=== PATIENT | female | born 1970 | race African-American/Black ===

== ENCOUNTER 2017-06-22 12:25 | Inpatient (IN) | payer OTHER ==
[2017-06-22] MEDS ORDERED: cloNIDine HCl 0.1 MG TAB ONE (12:56)
[2017-06-22 16:33] LABS: #Eosinphils 0.1 thou/uL (0.0-0.7); #Monocytes 0.4 thou/uL (0.11-0.59); #Neutrophils 4.8 thou/uL (1.40-6.50); %Basophils 0.4 % (0.0-1.0); %Eosinophils 0.9 % (0.0-10.0); %Lymphocytes 27.6 % (21.0-51.0); %Monocytes 5.7 % (0.0-10.0); Hematocrit 44.5 % (36.0-47.0); Mean Platelet Volume 7.1 fL (7.4-10.4); Red Blood Cell (RBC) Count 5.08 mill/uL (4.20-5.40); White Blood Cell (WBC) Count 7.3 thou/uL (4.8-10.8)
[2017-06-22 16:55] LABS: ALT (SGPT) 11 U/L (8-55); AST (SGOT) 16 U/L (5-34); Alkaline Phosphatase 122 U/L (40-150); Anion Gap 14 mmol/L (10-20); BUN (Urea Nitrogen) 11 mg/dL (7.0-18.7); Bilirubin, Total 0.4 mg/dL (0.2-1.2); Calc. Creatinine Clearance 0 mL/min (70-130); Calcium 9.6 mg/dL (7.8-10.44); Carbon Dioxide 23 mmol/L (22-29); Chloride 105 mmol/L (98-107); Estimated GFR-MDRD 83; Globulin 4.5 g/dL (2.4-3.5); Protein, Total 8.6 g/dL (6.0-8.3)
[2017-06-22 16:59] LABS: Troponin I Less than 0.010 ng/mL (< 0.028)
[2017-06-22 17:06] LABS: Bilirubin Negative (Negative); Blood, Urine Negative (Negative); Glucose, Urine (Dipstick) Negative (Negative); Ketone, Urine Negative (Negative); Nitrite Negative (Negative); Protein, Urine (Dipstick) Negative (Neg-Trace); Urobilinogen 0.2 mg/dL (0.2-1.0)
[2017-06-22] MEDS ORDERED: Labetalol HCl 100 MG/20 ML VIAL ONE (17:16)
[2017-06-22] MEDS ORDERED: Hydrochlorothiazide 25 MG TAB PO SCH (18:15)
[2017-06-22] MEDS ORDERED: Acetaminophen 325 MG TAB PO PRN (18:15)
[2017-06-22] MEDS ORDERED: Labetalol HCl 100 MG/20 ML VIAL SLOW IVP PRN (18:15)
[2017-06-22 18:31] VITALS: BMI 52.0
[2017-06-22] MEDS ORDERED: FLU VACC QS2017-18 36 mo. & older 0.5 ML SYRINGE IM ONE (19:00)
--- NOTE | 2017-06-22 22:38 | HP-2 ---
DATE OF ADMISSION: 06/22/2017 CODE STATUS: FULL. PRIMARY CARE PHYSICIAN: [facility] ATTENDING: Heath So MD. PGY1: Dr. Susan Leigh. HISTORIAN: Patient. CHIEF COMPLAINT: Blurry vision. HISTORY OF PRESENT ILLNESS: A 46-year-old female with past medical history of hypertension, who presents with elevated blood pressure and blurry vision since this morning. States she has not been taking her medications for her hypertension for multiple months and has not seen her primary care doctor in over a year. The patient denies headache, focal neurologic signs, decreased urine output, chest pain, respiratory distress, nausea, or vomiting. PAST MEDICAL HISTORY: Hypertension, glaucoma. PAST SURGICAL HISTORY: Denies. ALLERGIES: Denies. MEDICATIONS: Denies. FAMILY HISTORY: Denies. SOCIAL HISTORY: Denies tobacco, alcohol, and drug use. REVIEW OF SYSTEMS: Endorses vision changes, otherwise normal and as stated in HPI above. PHYSICAL EXAMINATION: VITAL SIGNS: Blood pressure 202/120, pulse 86, respiratory rate 14, T-max 97.7 , pulse ox 97% on room air. Current weight 158. GENERAL: Alert and oriented x3, no acute distress, obese, appropriately interactive. EYES: Right pupil with decreased reactivity to light secondary to glaucoma. Extraocular muscles intact. Conjunctivae within normal limits. ENT: Nasal mucosa within normal limits. CARDIOVASCULAR: Regular rate and rhythm. No murmurs, rubs, or gallops. RESPIRATORY: Normal effort, no retractions, clear to auscultation bilaterally. ABDOMEN: Soft, nontender, nondistended. Normoactive bowel sounds. EXTREMITIES: 1+ edema, nonpitting. MUSCULOSKELETAL: Structure within normal limits. NEUROLOGIC: Sensation and motor function within normal limits. PSYCHIATRIC: Appropriate. GCS 15. LABORATORY DATA: CBC: 7.3, hemoglobin 14.8, hematocrit 44.5, platelets 314. Chemistry: 138, 3.8, 105, 26, 11, .89, and 91. AST and ALT 16 and 11, alkaline phosphatase 22, bilirubin 0.4, calcium 9.6, total protein 8.6, albumin 4.1. EKG normal sinus rhythm. ASSESSMENT AND PLAN: A 46-year-old female with past medical history of hypertension, who presented off meds, admitted for hypertensive urgency. 1. Hypertensive urgency. HCTZ 12.5 b.i.d. started with first dose tonight, labetalol, hydralazine p.r.n. We will admit to tele. We will check her TSH. 2. Hypertension. We will start on HCTZ. 3. Glaucoma. We will start home meds after reconciled. 4. Obesity. We will [place] on weight loss and check hemoglobin A1c. 5. Medication noncompliance: [place] on importance of taking medications. DISPOSITION AND LENGTH OF STAY: 2 days. Symptomatic medication will be provided. History and physical exam, as well as management, will be discussed with Dr. So. CECILIA
[2017-06-23 06:37] LABS: Anion Gap 12 mmol/L (10-20); BUN (Urea Nitrogen) 8 mg/dL (7.0-18.7); Calc. Creatinine Clearance 213 mL/min (70-130); Calcium 9.3 mg/dL (7.8-10.44); Carbon Dioxide 24 mmol/L (22-29); Chloride 104 mmol/L (98-107); Estimated GFR-MDRD Greater than 90
--- NOTE | 2017-06-23 07:03 | PDOC.FM ---
- Subjective Subjective: No complaints this morning. No acute events overnight. - Objective MAR Reviewed: Yes Vital Signs & Weight: Vital Signs (12 hours) Temp Pulse Resp BP BP Pulse Ox 06/23/17 05:10 68 152/69 H 06/23/17 04:46 98.0 F 102 H 20 192/90 H 99 06/23/17 04:20 67 192/90 H 06/23/17 00:47 97.5 F L 67 20 164/77 H 100 06/22/17 20:00 98.3 F 64 20 175/77 H 98 Weight Weight 146.085 kg I&O: 06/21/17 06/22/17 06/23/17 06:59 06:59 06:59 Intake Total 1200 Output Total 1200 Balance 0 Result Diagrams: 06/23/17 07:23 06/23/17 07:23 Phys Exam - Physical Examination Constitutional: NAD HEENT: PERRLA, moist MMs Respiratory: no wheezing, no rales, clear to auscultation bilateral Cardiovascular: RRR, no significant murmur Gastrointestinal: soft, non-tender Musculoskeletal: no edema, pulses present Neurological: non-focal, normal sensation Psychiatric: normal affect, A&O x 3 Dx/Plan (1) Hypertensive urgency Code(s): I16.0 - HYPERTENSIVE URGENCY Status: Acute (2) Obesity Code(s): E66.9 - OBESITY, UNSPECIFIED Status: Acute (3) Glaucoma Code(s): H40.9 - UNSPECIFIED GLAUCOMA Status: Acute (4) HTN (hypertension) Code(s): I10 - ESSENTIAL (PRIMARY) HYPERTENSION Status: Acute - Plan Plan: 46 yo with PMHX HTN presents in hypertensive urgency. 1)Hypertensive urgency @220/110-Started HCTZ 12.5 BID and labetalol and hydralazine prn 2.)Glaucoma-restart home meds 3.)Obesity-check Hba1c, [place] on weight management. Dispo: [place] today with close follow-up with PCP.
[2017-06-23 07:34] LABS: #Eosinphils 0.1 thou/uL (0.0-0.7); #Lymphocytes 1.8 thou/uL (1.20-3.40); #Monocytes 0.5 thou/uL (0.11-0.59); #Neutrophils 3.4 thou/uL (1.40-6.50); %Basophils 0.3 % (0.0-1.0); %Eosinophils 1.7 % (0.0-10.0); %Lymphocytes 30.8 % (21.0-51.0); %Monocytes 8.9 % (0.0-10.0); Hematocrit 43.1 % (36.0-47.0); Mean Platelet Volume 7.1 fL (7.4-10.4); Red Blood Cell (RBC) Count 4.95 mill/uL (4.20-5.40); White Blood Cell (WBC) Count 5.7 thou/uL (4.8-10.8)
[2017-06-23 07:53] LABS: Anion Gap 12 mmol/L (10-20); BUN (Urea Nitrogen) 8 mg/dL (7.0-18.7); Calc. Creatinine Clearance 205 mL/min (70-130); Calcium 9.5 mg/dL (7.8-10.44); Carbon Dioxide 25 mmol/L (22-29); Chloride 104 mmol/L (98-107); Estimated GFR-MDRD Greater than 90; Phosphorus 3.1 mg/dL (2.3-4.7)
[2017-06-23] MEDS ORDERED: Hydrochlorothiazide 25 MG TAB PO SCH (09:00)
[2017-06-23 11:47] VITALS: BP 174/81; TEMP 98
--- NOTE | 2017-06-23 15:03 | HP ---
I have reviewed the history and physical of Dr. Susan Youngblood and agree with her assessment and plan. BRIEF HISTORY: Ms. Fonseca is a 46-year-old black female who was admitted with hypertensive urgency an d some blurry vision. She, however, also has a history of glaucoma. She at no time demonstrated an y focal deficits and was completely awake, alert, and oriented. She was treated overnight and her b lood pressure was normalized. PHYSICAL EXAMINATION: GENERAL: As stated. The patient is completely awake, alert, rather pleasant, and in no distress. VITAL SIGNS: Her blood pressure this morning is 160/70, her pulse rate is 80. EARS, NOSE, AND THROAT: Normal. NECK: Supple. CARDIAC: PMI is in the fifth intercostal space. S4, gallop. No murmur or rub. LUNGS: Clear. ABDOMEN: Soft. LABORATORY DATA: CBC: White count 7300, hemoglobin 14.8. Chemistries are normal. After restarting her oral medications, the patient's blood pressure quickly returned to her baseline and she will be discharged. She is urged to take her blood pressure medications every day and to f ollow up regularly at our clinic. DISCHARGE DIAGNOSIS: Hypertensive urgency, resolved.
--- NOTE | 2017-06-24 02:16 | DIS-2 ---
DATE OF ADMISSION: 06/22/2017 DATE OF DISCHARGE: 06/23/2017 ADMITTING RESIDENT: Dr. Susan Leigh ADMITTING ATTENDING: Dr. Heath So. DISCHARGE RESIDENT: Dr. Susan Leigh. DISCHARGE ATTENDING: Dr. Heath So. CONSULTATIONS: None. PROCEDURES: None. PRIMARY DIAGNOSIS: Hypertensive urgency. SECONDARY DIAGNOSES: 1. Glaucoma. 2. Obesity. DISCHARGE MEDICATIONS: 1. Hydrochlorothiazide 12.5 mg b.i.d. 2. Travoprost. 3. Brimonidine tartrate. DISCONTINUED MEDICATIONS: None. HISTORY OF PRESENT ILLNESS/HOSPITAL COURSE: A 46-year-old female with a past medical history of hyp ertension, who presents with elevated blood pressure and blurry vision, states she has not been taki ng her medications for her hypertension for multiple months and has not seen her primary care doctor in over a year. The patient denies headache, focal neurologic signs, decreased urine output, chest pain, respiratory distress, nausea, or vomiting; only endorsed some blurry vision. The patient has a past medical history of glaucoma as well. Blood pressure in the ED was 202/120. On exam, the pa tient did not show any focal neurologic deficits and physical exam was, otherwise, benign. Initial labs drawn included a CBC, CMP, cardiac enzymes. CK-MB and troponins were normal. The patient was admitted to the hospital for hypertensive urgency. The patient was started on hydrochlorothiazide 1 2.5 mg b.i.d. The patient was provided with labetalol and hydralazine p.r.n. goal, which the patien t did not need any p.r.n. overnight. The patient's blood pressure slowly down trended to the 160s/7 0s overnight with a goal of only lowering the blood pressure by 10-20% in the first 24 hours. The n ext morning, the patient was not having any symptoms and blood pressures were in the 150s-170s upon discharge. It was discussed with the patient the importance of taking her blood pressure medication daily as well as following up with [facility] to help manage her hypertension chronical ly. The patient was restarted on her home glaucoma medications. 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 The patient was found to be obese and hemoglobin A1c and TSH were checked, both of which were normal. The patient was counseled on dietary recommendations regarding a low salt, heart-healthy diet. DISPOSITION: Stable. DISCHARGE INSTRUCTIONS: 1. Location: Home. 2. Diet: Heart-healthy, cardiac, low salt. 3. Activity: As tolerated. 4. Followup: With [facility] within 1 week.
== END 2017-06-23 13:00 | disposition home or self-care (01) | DRG 305 ==
LOC: ERS 12:25 → 2NO 18:10
PROVIDERS: ADMIT Family Medicine; ATTEND Family Medicine
DX: I16.0 Hypertensive urgency (principal); Z68.43 Body mass index [BMI] 50.0-59.9, adult; E66.9 Obesity, unspecified; H40.9 Unspecified glaucoma; I10 Essential (primary) hypertension; Z23 Encounter for immunization; Z91.14 Patient's other noncompliance with medication regimen
CPT/HCPCS: 36415; 80048; 80053; 81003; 82553; 83036; 83735; 83880; 84100; 84443; 84484; 85025; 90471; 90682; 93005; 96374; G0008; J0360; Q2036

== ENCOUNTER 2018-09-25 11:53 | Emergency (ER) | payer OTHER ==
[2018-09-25 12:55] LABS: Bilirubin Negative (Negative); Blood, Urine Trace (Negative); Clarity CLOUDY (Clear); Glucose, Urine (Dipstick) Negative (Negative); Leukocyte Small (Negative); Nitrite Negative (Negative); Protein, Urine (Dipstick) Negative (Neg-Trace); Specific Gravity, Urine 1.024 (1.002-1.036)
[2018-09-25 12:58] LABS: Bacteria/HPF Rare-Few HPF (None Seen); Hyaline Casts/LPF 4-6 HYALINE CAST LPF (0-3 Hyaline); Pathc Cast-AUWi Flag 0.43 (0-2.49)
== END 2018-09-25 13:20 | disposition left against medical advice (07) ==
LOC: ERS 11:53
DX: Z53.21 Procedure and treatment not carried out due to patient leaving prior to being seen by health care provider (principal)
CPT/HCPCS: 81003; 81015

== ENCOUNTER 2018-09-26 08:54 | Emergency (ER) | payer OTHER ==
[2018-09-26] MEDS ORDERED: Ketorolac Tromethamine 60 MG/2 ML VIAL ONE (09:47)
[2018-09-26 09:53] LABS: Bilirubin Negative (Negative); Blood, Urine Negative (Negative); Clarity CLOUDY (Clear); Glucose, Urine (Dipstick) Negative (Negative); Leukocyte Small (Negative); Nitrite Negative (Negative); Protein, Urine (Dipstick) Negative (Neg-Trace); Specific Gravity, Urine 1.019 (1.002-1.036); Urobilinogen 0.2 mg/dL (0.2-1.0)
[2018-09-26 09:56] LABS: Bacteria/HPF Rare-Few HPF (None Seen); Hyaline Casts/LPF 4-6 HYALINE CAST LPF (0-3 Hyaline); Pathc Cast-AUWi Flag 1.16 (0-2.49); RBC/HPF 0-3 HPF (0-3)
== END 2018-09-26 10:18 | disposition home or self-care (01) ==
LOC: ERS 08:54
DX: M54.5 Low back pain (principal); R30.0 Dysuria; E78.5 Hyperlipidemia, unspecified; I10 Essential (primary) hypertension
CPT/HCPCS: 81003; 87086; 96372; J1885

== ENCOUNTER 2021-02-23 14:57 | Emergency (ER) | payer OTHER ==
[2021-02-23 16:28] LABS: #Eosinphils 0.2 thou/uL (0.0-0.7); #Lymphocytes 2.8 thou/uL (1.20-3.40); #Monocytes 0.7 thou/uL (0.11-0.59); #Neutrophils 4.5 thou/uL (1.40-6.50); %Basophils 0.2 % (0.0-1.0); %Eosinophils 2.2 % (0.0-10.0); %Lymphocytes 33.9 % (21.0-51.0); %Monocytes 8.4 % (0.0-10.0); %Neutrophils 55.3 % (42.0-75.0); Hemoglobin 14.1 g/dL (12.0-16.0); Mean Corpuscular HGB CONC 32.9 g/dL (32.0-36.0); Mean Corpuscular Volume 87.9 fL (78.0-98.0); Platelet Count 295 thou/uL (130-400); RBC Distribution Width 12.4 % (11.5-14.5); Red Blood Cell (RBC) Count 4.86 mill/uL (4.20-5.40); White Blood Cell (WBC) Count 8.2 thou/uL (4.8-10.8)
[2021-02-23] MEDS ORDERED: Lisinopril/Hydrochlorothiazide 20/25 mg Tablet PO SCH (16:30)
[2021-02-23 16:54] LABS: ALT (SGPT) 12 U/L (8-55); AST (SGOT) 14 U/L (5-34); Albumin 3.7 g/dL (3.5-5.0); Alkaline Phosphatase 118 U/L (40-110); Anion Gap 12 mmol/L (10-20); BUN (Urea Nitrogen) 16 mg/dL (7.0-18.7); Bilirubin, Total 0.2 mg/dL (0.2-1.2); Calc. Creatinine Clearance 0 mL/min (70-130); Calcium 9.3 mg/dL (7.8-10.44); Carbon Dioxide 26 mmol/L (22-29); Chloride 103 mmol/L (98-107); Globulin 4.3 g/dL (2.4-3.5); Glucose 107 mg/dL (70-105); Sodium 138 mmol/L (136-145)
[2021-02-23 17:09] LABS: Potassium 2.9 mmol/L (3.5-5.1)
[2021-02-23 17:23] LABS: Bilirubin Negative (Negative); Blood, Urine Negative (Negative); Clarity Clear (Clear); Glucose, Urine (Dipstick) Normal (Negative); Ketone, Urine Negative (Negative); Leukocyte 25 Leu/uL (Negative); Nitrite Negative (Negative); Protein, Urine (Dipstick) Negative (Neg-Trace); RBC/HPF 0-3 HPF (0-3); Specific Gravity, Urine 1.015 (1.002-1.036); Urobilinogen Normal mg/dL (Less than 2); WBC/HPF 0-3 HPF (0-3)
[2021-02-23] MEDS ORDERED: Potassium Chloride 20 MEQ TAB ONE (17:24)
[2021-02-23 17:27] LABS: Bacteria/HPF 1+ HPF (None Seen)
== END 2021-02-23 18:50 | disposition home or self-care (01) ==
LOC: ERS 14:57
DX: I10 Essential (primary) hypertension (principal); E78.5 Hyperlipidemia, unspecified; E78.00 Pure hypercholesterolemia, unspecified; Z79.899 Other long term (current) drug therapy
CPT/HCPCS: 36415; 70450; 80053; 81003; 81015; 84484; 85025; 93005

== ENCOUNTER 2021-12-15 18:46 | Emergency (ER) | payer OTHER | END 2021-12-15 19:24 | disposition left against medical advice (07) | LOC: ERS 18:46 | DX: Z53.21 Procedure and treatment not carried out due to patient leaving prior to being seen by health care provider (principal) ==